=== PATIENT | female | born 1995 | race African-American/Black ===

== ENCOUNTER 2021-03-09 23:51 | Emergency (ER) | payer BC, OTHER ==
[2021-03-10 02:15] LABS: BASO % 1.1 % (0-2.0); EOS % 2.1 % (0-4.5); HEMATOCRIT 35.9 % (32.4-45.2); HEMOGLOBIN 11.7 GM/dL (10.7-15.3); LYMPH % 43.3 % (8-40); MCHC 32.7 g/dl (32.0-36.0); MEAN CELL VOLUME 82.5 fl (80-96); MEAN PLT VOLUME 8.6 fl (7.5-11.1); MONO % 10.1 % (3.8-10.2); NEUT % 43.4 % (42.8-82.8); PLATELET COUNT 337 10^3/uL (134-434); RBC 4.35 M/mm3 (3.60-5.2); RDW 16.3 % (11.6-15.6); WHITE BLOOD COUNT 6.2 K/mm3 (4.0-10.0)
[2021-03-10 02:23] VITALS: BP 142/85; PULSE 70; TEMP 97.9; BMI 23.3
[2021-03-10 02:39] LABS: CHLORIDE 107 mmol/L (98-107); SODIUM 140 mmol/L (136-145)
[2021-03-10 02:41] LABS: CALCIUM 9.4 mg/dL (8.5-10.1)
[2021-03-10 02:42] LABS: ALBUMIN 3.7 g/dl (3.4-5.0); ANION GAP 6 MMOL/L (8-16); CO2 28 mmol/L (21-32); GLUCOSE,RANDOM 84 mg/dL (74-106)
[2021-03-10 02:45] LABS: SGOT/AST 16 U/L (15-37); SGPT/ALT 20 U/L (13-61)
[2021-03-10 02:47] LABS: BILIRUBIN,TOTAL 0.5 mg/dL (0.2-1); TOT PROT 7.4 g/dl (6.4-8.2)
[2021-03-10 02:48] LABS: ALK PHOS 76 U/L (45-117)
[2021-03-10 03:40] LABS: ERYTHROCYTE SEDIMENTATION RATE 2 mm/hr (0-20)
[2021-03-10 04:16] LABS: EPI CELLS 15 /uL (0-25.1); HYALINE CASTS 1 /uL (0-3.1); URINE APPEARANCE CLEAR; URINE BACTERIA 3042 /uL (0-1359); URINE BILIRUBIN NEGATIVE (NEGATIVE); URINE COLOR YELLOW; URINE GLUCOSE (UA) NEGATIVE (NEGATIVE); URINE KETONE NEGATIVE (NEGATIVE); URINE LEUK ESTERASE NEGATIVE (NEGATIVE); URINE NITRITE NEGATIVE (NEGATIVE); URINE PROTEIN NEGATIVE (NEGATIVE); URINE RBC 16 /uL (0-23.9); URINE UROBILINOGEN 0.2 mg/dL (0.2-1.0); URINE WBC 8 /uL (0-25.8)
== END 2021-03-10 05:26 | disposition home or self-care (01) ==
LOC: JER 23:51
DX: R07.89 Other chest pain (principal)
CPT/HCPCS: 36415; 71045-TC-FY; 80053; 81003; 84484; 85025; 85651; 86140; 87491; 87591; 93005; 93010; 99283-25